=== PATIENT | male | born 1995 | race Caucasian/White ===

== ENCOUNTER 2020-12-25 20:43 | Emergency (ER) | payer MEDICAID ==
[~2020-12-25] VITALS: Ht 177.8 cm; Wt 120.2 kg
[2020-12-25] MEDS ORDERED: OLANZapine 5 MG ODT PO ONE (22:00)
[2020-12-25] MEDS ORDERED: OLAN20TA1 PO (22:45)
[2020-12-25 23:14] VITALS: BP 152/73
[2020-12-25] MEDS ORDERED: OLANZapine 5 MG ODT ONE (23:14)
[2020-12-25 23:15] VITALS: BP 152/73
--- NOTE | 2020-12-25 23:15 | NUR ---
SEE COMPLETE ASSESSMENT
--- NOTE | 2020-12-25 23:25 | NUR ---
Patient discharged with v/s stable. Written and verbal after care instructions given and explained. Patient alert, oriented and verbalized understanding of instructions. Ambulatory with steady gait. All questions addressed prior to discharge. ID band removed. Patient advised to follow up with PMD. Rx of ZYPREXA given. Patient educated on indication of medication including possible reaction and side effects. Opportunity to ask questions provided and answered.
== END 2020-12-25 23:25 | disposition home or self-care (01) ==
LOC: MED 20:43
DX: G47.9 Sleep disorder, unspecified (principal); F20.9 Schizophrenia, unspecified; Z76.0 Encounter for issue of repeat prescription; Z79.899 Other long term (current) drug therapy
CPT/HCPCS: 99283

== ENCOUNTER 2023-02-20 15:47 | Emergency (ER) | payer MEDICAID ==
[~2023-02-20] VITALS: Ht 180.3 cm; Wt 138.5 kg
[~2023-02-20 15:47] MED LIST: OLAN20TA1 PO
[2023-02-20 15:59] VITALS: BP 134/84; PULSE 111; RESP 20; TEMP 98.4; O2SAT 97
[2023-02-20 16:22] VITALS: O2SAT 97
[2023-02-20] MEDS ORDERED: QUEtiapine FUMARATE 25 MG TAB PO SCH (17:50)
[2023-02-20] MEDS ORDERED: QUEtiapine FUMARATE 100 MG TAB PO SCH (17:55)
[2023-02-20] MEDS ORDERED: QUET200T PO (17:57)
[2023-02-20] MEDS ORDERED: CRUSHER, PILL MC ONE (17:58)
== END 2023-02-20 18:01 | disposition home or self-care (01) ==
LOC: MED 15:47
DX: F20.9 Schizophrenia, unspecified (principal); Z76.0 Encounter for issue of repeat prescription; Z79.899 Other long term (current) drug therapy
CPT/HCPCS: 99281

== ENCOUNTER 2024-01-02 12:19 | Emergency (ER) | payer MEDICAID ==
[~2024-01-02] VITALS: Ht 180.3 cm; Wt 108.9 kg
[~2024-01-02 12:19] MED LIST changes: +QUET200T PO
[2024-01-02 12:32] VITALS: BP 138/80; PULSE 106; RESP 18; TEMP 97.7; O2SAT 99
== END 2024-01-02 13:57 | disposition home or self-care (01) ==
LOC: MED 12:19
DX: T16.2XXA Foreign body in left ear, initial encounter (principal); R03.0 Elevated blood-pressure reading, without diagnosis of hypertension; F20.9 Schizophrenia, unspecified; Z79.899 Other long term (current) drug therapy; W44.9XXA Unspecified foreign body entering into or through a natural orifice, initial encounter; Y93.89 Activity, other specified; Y92.89 Other specified places as the place of occurrence of the external cause; Y99.8 Other external cause status
CPT/HCPCS: 99284